=== PATIENT | female | born 1995 ===

== ENCOUNTER 2020-09-01 20:11 | Inpatient (IN) | payer OTHER ==
[~2020-09-01] VITALS: Ht 162.6 cm; Wt 55.7 kg
--- NOTE | 2020-09-01 23:31 | NUR ---
PT VS RECHECKED
--- NOTE | 2020-09-02 00:08 | NUR ---
PT WALKED BACK TO ROOM AT THIS TIME.
[2020-09-02] MEDS ORDERED: AMPICILLIN/SULBACTAM 3 GM in SODIUM CHLORIDE 0.9% 100 ML IV ONE (00:30)
[2020-09-02] MEDS ORDERED: VANCOMYCIN PER PHARMACY MC ONE (00:30)
[2020-09-02] MEDS ORDERED: SODIUM CHLORIDE FLUSH 10ML SYR IVF ONE (00:30)
[2020-09-02] MEDS ORDERED: SODIUM CHLORIDE 0.9% 1,000ML IVBOLUS ONE ×2 (00:30→02:30)
[2020-09-02 00:50] LABS: BASOPHILS % (AUTO) 1 % (0-1); EOSINOPHILS % (AUTO) 2 % (1-7); LYMPHOCYTES % (AUTO) 16 % (22-44); MEAN CORPUSCULAR HEMOGLOBIN 29.8 pg (27.0-34.8); MEAN CORPUSCULAR HGB CONC 33.2 g/dL (32.4-35.8); MEAN PLATELET VOLUME 7.4 fL (7.4-10.4); MONOCYTES % (AUTO) 8 % (2-9); NEUTROPHILS % (AUTO) 74 % (42-75); PLATELET COUNT 403 x10^3/uL (130-400); RED BLOOD COUNT 4.02 x10^6/uL (3.82-5.3)
[2020-09-02 01:01] LABS: ALANINE AMINOTRANSFERASE 22 U/L (12-78); ALBUMIN 2.9 g/dL (3.4-5.0); ANION GAP 10 mmol/L (5-15); CALCIUM 8.7 mg/dL (8.5-10.1); CHLORIDE 100 mmol/L (98-107); CREATININE 0.65 mg/dL (0.55-1.02)
[2020-09-02 01:03] LABS: ALKALINE PHOSPHATASE 177 U/L (45-117); BILIRUBIN,TOTAL 0.4 mg/dL (0.2-1.0); TOTAL PROTEIN 7.5 g/dL (6.4-8.2)
[2020-09-02 01:17] LABS: ACETONE, SERUM Moderate(40mg/dL) (Negative)
[2020-09-02] MEDS ORDERED: VANCOMYCIN 1,500 MG in SODIUM CHLORIDE 0.9% 250 ML IV ONE (01:30)
--- NOTE | 2020-09-02 01:47 | NUR ---
ABX STARTED AT THIS TIME, CULTURES DRAWN X2 PRIOR TO START
[2020-09-02 01:53] LABS: MICROSCOPIC NOT IND
[2020-09-02] MEDS ORDERED: OXYcodone IR 5MG TABLET PO PRN (03:00)
[2020-09-02] MEDS ORDERED: ZOLPIDEM 5MG TABLET PO PRN (03:00)
[2020-09-02] MEDS ORDERED: BACLOFEN 10 MG TABLET PO PRN (03:00)
[2020-09-02] MEDS ORDERED: ACETAMINOPHEN 325 MG TABLET PO PRN (03:00)
[2020-09-02] MEDS ORDERED: VANCOMYCIN PER PHARMACY MC PRN (03:00)
[2020-09-02] MEDS: INSULIN REGULAR 100 UNITS/ML, 3ML VIAL SQ-INSULIN SCH ×5 (03:00→20:59)
[2020-09-02] MEDS ORDERED: DOCUSATE 100 MG CAPSULE PO PRN (03:00)
[2020-09-02] MEDS ORDERED: ENALAPRILAT 1.25 MG/ML, 2ML IVPush PRN (03:00)
[2020-09-02] MEDS ORDERED: GUAIFENESIN/DM 200-20MG, 10ML UDC PO PRN (03:00)
--- NOTE | 2020-09-02 03:21 | NUR ---
PT RESTING ON AUDREY NADFlorecita, REQUESTING SNACKS AND BLANKET, BOTH PROVIDED
--- NOTE | 2020-09-02 03:40 | NUR ---
REPORT TO RAMIRO, ALL QUESTIONS ADDRESSED PT BELONGINGS TO BE GONE THROUGH BY SECURITY PRIOR TO TRANSFER TO FLOOR.
[2020-09-02 04:11] VITALS: BP 100/63
[2020-09-02] MEDS ORDERED: PHARMACOKINETIC MONITORING MC PRN (04:30)
[2020-09-02] MEDS: LACTATED RINGERS 1,000 ML IV SCH ×2 (04:57→22:30)
[2020-09-02] MEDS: PIPERACILLIN/TAZO 3.375 GM in DEXTROSE 5% 50 ML IVPB SCH ×3 (04:57→20:34)
[2020-09-02 06:42] VITALS: BP 104/62
[2020-09-02] MEDS ORDERED: INSULIN GLARGINE 100 UNITS/ML, PEN SQ-INSULIN SCH ×2 (08:00→08:30)
[2020-09-02] MEDS ORDERED: FAMOTIDINE 20 MG/2 ML IVPush SCH (09:00)
[2020-09-02] MEDS: FAMOTIDINE 20 MG TABLET PO SCH ×2 (09:04→20:34)
[2020-09-02] MEDS ORDERED: VANCOMYCIN 1,200 MG in SODIUM CHLORIDE 0.9% 250 ML IV SCH (14:00)
[2020-09-02 14:30] VITALS: BP 109/71
[2020-09-02] MEDS: MUPIROCIN OINT 2%, 22GM TP SCH ×2 (14:48→20:34)
[2020-09-02] MEDS ORDERED: QUET50TA5 PO (16:39)
[2020-09-02] MEDS ORDERED: INSU100V8 SQ (16:39)
[2020-09-02] MEDS ORDERED: GABA600T7 PO (16:39)
[2020-09-02] MEDS ORDERED: SERT50TA PO (16:39)
[2020-09-02] MEDS ORDERED: INSU500V SQ (16:39)
[2020-09-02 21:42] VITALS: BP 106/72
[2020-09-02] MEDS: VANCOMYCIN 1,000 MG in SODIUM CHLORIDE 0.9% 100 ML IV SCH (22:30)
[2020-09-03 02:23] VITALS: BP 128/85
[2020-09-03] MEDS: PIPERACILLIN/TAZO 3.375 GM in DEXTROSE 5% 50 ML IVPB SCH ×3 (04:07→20:29)
[2020-09-03 05:30] LABS: BASOPHILS % (AUTO) 1 % (0-1); EOSINOPHILS % (AUTO) 0 % (1-7); LYMPHOCYTES % (AUTO) 8 % (22-44); MEAN CORPUSCULAR HEMOGLOBIN 29.9 pg (27.0-34.8); MEAN CORPUSCULAR HGB CONC 32.9 g/dL (32.4-35.8); MEAN PLATELET VOLUME 7.6 fL (7.4-10.4); MONOCYTES % (AUTO) 5 % (2-9); NEUTROPHILS % (AUTO) 87 % (42-75); PLATELET COUNT 491 x10^3/uL (130-400); RED BLOOD COUNT 4.53 x10^6/uL (3.82-5.3); RED CELL DISTRIBUTION WIDTH 17.3 % (9.6-15.2)
[2020-09-03] MEDS: VANCOMYCIN 1,000 MG in SODIUM CHLORIDE 0.9% 100 ML IV SCH ×3 (05:40→22:34)
[2020-09-03 05:44] LABS: ANION GAP 13 mmol/L (5-15); CALCIUM 8.8 mg/dL (8.5-10.1); CHLORIDE 100 mmol/L (98-107)
[2020-09-03 05:55] LABS: CREATININE 0.61 mg/dL (0.55-1.02)
[2020-09-03 07:12] VITALS: BP 116/74
[2020-09-03] MEDS: INSULIN GLARGINE 100 UNITS/ML, PEN SQ-INSULIN SCH (08:31)
[2020-09-03] MEDS: INSULIN REGULAR 100 UNITS/ML, 3ML VIAL SQ-INSULIN SCH ×4 (08:32→21:04)
[2020-09-03] MEDS: FAMOTIDINE 20 MG TABLET PO SCH ×2 (09:33→20:29)
[2020-09-03] MEDS: MUPIROCIN OINT 2%, 22GM TP SCH ×3 (09:33→21:04)
[2020-09-03 12:24] VITALS: BP 100/63
[2020-09-03] MEDS: ENOXAPARIN 40 MG/0.4 ML SQ SCH (18:14)
[2020-09-03 20:17] VITALS: BP 108/65
[2020-09-04 01:10] VITALS: BP 108/65
[2020-09-04] MEDS: PIPERACILLIN/TAZO 3.375 GM in DEXTROSE 5% 50 ML IVPB SCH (04:18)
[2020-09-04 05:34] LABS: BASOPHILS % (AUTO) 1 % (0-1); EOSINOPHILS % (AUTO) 1 % (1-7); LYMPHOCYTES % (AUTO) 13 % (22-44); MEAN CORPUSCULAR HEMOGLOBIN 30.1 pg (27.0-34.8); MEAN CORPUSCULAR HGB CONC 33.6 g/dL (32.4-35.8); MEAN PLATELET VOLUME 7.2 fL (7.4-10.4); MONOCYTES % (AUTO) 11 % (2-9); NEUTROPHILS % (AUTO) 75 % (42-75); PLATELET COUNT 477 x10^3/uL (130-400); RED CELL DISTRIBUTION WIDTH 17.1 % (9.6-15.2)
[2020-09-04 05:44] LABS: ANION GAP 8 mmol/L (5-15); CALCIUM 7.8 mg/dL (8.5-10.1); CHLORIDE 109 mmol/L (98-107)
[2020-09-04 05:49] LABS: CREATININE 1.51 mg/dL (0.55-1.02)
[2020-09-04] MEDS: VANCOMYCIN 1,000 MG in SODIUM CHLORIDE 0.9% 100 ML IV SCH (06:04)
[2020-09-04 07:16] VITALS: BP 105/72
[2020-09-04] MEDS: FAMOTIDINE 20 MG TABLET PO SCH ×2 (08:40→20:29)
[2020-09-04] MEDS: SODIUM CHLORIDE 0.9% 1,000 ML IV SCH ×2 (08:42→20:46)
[2020-09-04] MEDS: INSULIN REGULAR 100 UNITS/ML, 3ML VIAL SQ-INSULIN SCH ×4 (08:54→20:38)
[2020-09-04] MEDS: ONDANSETRON 2MG/ML, 2ML IVPush PRN ×2 (08:54→15:50)
[2020-09-04] MEDS: ERTAPENEM 1 GM in SODIUM CHLORIDE 0.9% 50 ML IV SCH (10:50)
[2020-09-04] MEDS: MUPIROCIN OINT 2%, 22GM TP SCH ×2 (10:50→20:30)
[2020-09-04] MEDS: INSULIN GLARGINE 100 UNITS/ML, PEN SQ-INSULIN SCH (10:50)
[2020-09-04] MEDS: NYSTATIN 500,000 UNITS/5 ML UDC PO SCH ×3 (12:05→20:29)
[2020-09-04] MEDS: LINEZOLID PMX 600MG/300ML 300 ML IV SCH ×2 (12:05→22:29)
[2020-09-04 12:28] VITALS: BP 114/74
[2020-09-04] MEDS: ENOXAPARIN 40 MG/0.4 ML SQ SCH (16:33)
[2020-09-04 17:21] LABS: CLOSTRIDIUM DIFFICILE ANTIGEN NEGATIVE; CLOSTRIDIUM DIFFICILE TOXIN NEGATIVE (Negative)
[2020-09-04 19:53] VITALS: BP 114/80
[2020-09-05] MEDS: METOCLOPRAMIDE 5 MG/ML, 2ML IVPush SCH ×4 (00:11→22:47)
[2020-09-05 00:55] VITALS: BP 99/65
[2020-09-05] MEDS: NYSTATIN 500,000 UNITS/5 ML UDC PO SCH ×4 (05:22→21:00)
[2020-09-05 05:53] LABS: BASOPHILS % (AUTO) 1 % (0-1); EOSINOPHILS % (AUTO) 1 % (1-7); LYMPHOCYTES % (AUTO) 22 % (22-44); MEAN CORPUSCULAR HEMOGLOBIN 29.9 pg (27.0-34.8); MEAN CORPUSCULAR HGB CONC 33.4 g/dL (32.4-35.8); MEAN PLATELET VOLUME 7.3 fL (7.4-10.4); MONOCYTES % (AUTO) 11 % (2-9); NEUTROPHILS % (AUTO) 65 % (42-75); PLATELET COUNT 398 x10^3/uL (130-400); RED BLOOD COUNT 3.72 x10^6/uL (3.82-5.3)
[2020-09-05 06:03] LABS: ANION GAP 10 mmol/L (5-15); CALCIUM 7.1 mg/dL (8.5-10.1); CHLORIDE 111 mmol/L (98-107); CREATININE 3.06 mg/dL (0.55-1.02)
[2020-09-05] MEDS: SODIUM CHLORIDE 0.9% 1,000 ML IV SCH (07:00)
[2020-09-05] MEDS: INSULIN REGULAR 100 UNITS/ML, 3ML VIAL SQ-INSULIN SCH ×4 (07:00→21:38)
[2020-09-05 07:28] VITALS: BP 115/79
[2020-09-05] MEDS: INSULIN GLARGINE 100 UNITS/ML, PEN SQ-INSULIN SCH (08:35)
[2020-09-05] MEDS: MUPIROCIN OINT 2%, 22GM TP SCH ×2 (08:36→21:26)
[2020-09-05] MEDS: FAMOTIDINE 20 MG TABLET PO SCH ×2 (08:36→21:25)
[2020-09-05] MEDS: LACTATED RINGERS 1,000 ML IV SCH ×2 (08:42→15:50)
[2020-09-05] MEDS: ERTAPENEM 1 GM in SODIUM CHLORIDE 0.9% 50 ML IV SCH (11:08)
[2020-09-05] MEDS: LINEZOLID PMX 600MG/300ML 300 ML IV SCH ×2 (11:50→22:47)
[2020-09-05 12:55] VITALS: BP 106/72
[2020-09-05] MEDS ORDERED: ENOXAPARIN 30 MG/0.3 ML SQ SCH (13:30)
[2020-09-05 20:43] VITALS: BP 127/86
[2020-09-06 01:04] VITALS: BP 107/69
[2020-09-06] MEDS: LACTATED RINGERS 1,000 ML IV SCH ×3 (02:52→22:11)
[2020-09-06 05:14] LABS: BASOPHILS % (AUTO) 1 % (0-1); EOSINOPHILS % (AUTO) 1 % (1-7); LYMPHOCYTES % (AUTO) 25 % (22-44); MEAN CORPUSCULAR HEMOGLOBIN 29.5 pg (27.0-34.8); MEAN CORPUSCULAR HGB CONC 33.6 g/dL (32.4-35.8); MEAN PLATELET VOLUME 7.2 fL (7.4-10.4); MONOCYTES % (AUTO) 10 % (2-9); NEUTROPHILS % (AUTO) 63 % (42-75); PLATELET COUNT 448 x10^3/uL (130-400); RED BLOOD COUNT 3.75 x10^6/uL (3.82-5.3); RED CELL DISTRIBUTION WIDTH 16.9 % (9.6-15.2)
[2020-09-06 05:25] LABS: ANION GAP 7 mmol/L (5-15); CALCIUM 7.4 mg/dL (8.5-10.1); CHLORIDE 111 mmol/L (98-107)
[2020-09-06 05:27] LABS: CREATININE 3.44 mg/dL (0.55-1.02)
[2020-09-06] MEDS: NYSTATIN 500,000 UNITS/5 ML UDC PO SCH ×4 (05:37→21:00)
[2020-09-06 07:00] VITALS: BP 108/71
[2020-09-06] MEDS: INSULIN REGULAR 100 UNITS/ML, 3ML VIAL SQ-INSULIN SCH ×4 (07:00→22:05)
[2020-09-06] MEDS: METOCLOPRAMIDE 5 MG/ML, 2ML IVPush SCH (07:32)
[2020-09-06] MEDS: ENOXAPARIN 30 MG/0.3 ML SQ SCH (08:07)
[2020-09-06] MEDS: INSULIN GLARGINE 100 UNITS/ML, PEN SQ-INSULIN SCH (08:07)
[2020-09-06] MEDS: FAMOTIDINE 20 MG TABLET PO SCH (08:07)
[2020-09-06] MEDS: MUPIROCIN OINT 2%, 22GM TP SCH ×2 (08:07→22:10)
[2020-09-06] MEDS: AMPICILLIN/SULBACTAM 3 GM in SODIUM CHLORIDE 0.9% 100 ML IV SCH ×2 (10:00→22:04)
[2020-09-06] MEDS ORDERED: METOCLOPRAMIDE 5 MG/ML, 2ML IVPush PRN (10:30)
[2020-09-06] MEDS: LINEZOLID PMX 600MG/300ML 300 ML IV SCH ×2 (10:56→23:48)
[2020-09-06 13:05] VITALS: BP 112/69
[2020-09-06 20:08] VITALS: BP 122/82
[2020-09-07 02:43] VITALS: BP 123/83
[2020-09-07 04:49] LABS: ANION GAP 6 mmol/L (5-15); CALCIUM 7.5 mg/dL (8.5-10.1); CHLORIDE 112 mmol/L (98-107)
[2020-09-07 04:51] LABS: CREATININE 3.31 mg/dL (0.55-1.02)
[2020-09-07] MEDS: NYSTATIN 500,000 UNITS/5 ML UDC PO SCH ×4 (05:13→20:30)
[2020-09-07] MEDS: INSULIN REGULAR 100 UNITS/ML, 3ML VIAL SQ-INSULIN SCH ×4 (07:00→22:12)
[2020-09-07 07:12] VITALS: BP 129/82
[2020-09-07] MEDS: INSULIN GLARGINE 100 UNITS/ML, PEN SQ-INSULIN SCH (08:25)
[2020-09-07] MEDS: AMPICILLIN/SULBACTAM 3 GM in SODIUM CHLORIDE 0.9% 100 ML IV SCH ×2 (08:25→20:30)
[2020-09-07] MEDS: ENOXAPARIN 30 MG/0.3 ML SQ SCH (08:25)
[2020-09-07] MEDS: MUPIROCIN OINT 2%, 22GM TP SCH ×2 (09:00→20:30)
[2020-09-07] MEDS: LINEZOLID PMX 600MG/300ML 300 ML IV SCH ×2 (10:22→23:18)
[2020-09-07] MEDS: LACTATED RINGERS 1,000 ML IV SCH ×2 (10:23→17:40)
[2020-09-07 12:43] VITALS: BP 151/95
[2020-09-07 18:47] VITALS: BP 150/89
[2020-09-07] MEDS ORDERED: FAMOTIDINE 20 MG TABLET PO SCH (21:00)
[2020-09-08 00:58] VITALS: BP 121/81
[2020-09-08] MEDS: LACTATED RINGERS 1,000 ML IV SCH ×2 (03:29→10:31)
[2020-09-08 05:06] LABS: ANION GAP 5 mmol/L (5-15); CHLORIDE 109 mmol/L (98-107)
[2020-09-08 05:08] LABS: CREATININE 2.84 mg/dL (0.55-1.02)
[2020-09-08] MEDS: NYSTATIN 500,000 UNITS/5 ML UDC PO SCH ×2 (05:11→10:32)
[2020-09-08] MEDS: INSULIN REGULAR 100 UNITS/ML, 3ML VIAL SQ-INSULIN SCH ×2 (07:00→11:18)
[2020-09-08] MEDS ORDERED: INSULIN GLARGINE 100 UNITS/ML, PEN SQ-INSULIN SCH (08:00)
[2020-09-08] MEDS: MUPIROCIN OINT 2%, 22GM TP SCH (08:33)
[2020-09-08] MEDS: ENOXAPARIN 30 MG/0.3 ML SQ SCH (08:33)
[2020-09-08] MEDS: AMPICILLIN/SULBACTAM 3 GM in SODIUM CHLORIDE 0.9% 100 ML IV SCH (08:33)
[2020-09-08 09:08] VITALS: BP 146/97
[2020-09-08] MEDS: LINEZOLID PMX 600MG/300ML 300 ML IV SCH (10:31)
[2020-09-08] MEDS ORDERED: MUPI22OI2 TP (11:28)
[2020-09-08] MEDS ORDERED: LINE600T12 PO (11:28)
[2020-09-08] MEDS ORDERED: AMOX1TAB64 PO (11:28)
[2020-09-08] MEDS ORDERED: INSU100C5 SQ-INSULIN (11:28)
[2020-09-08] MEDS ORDERED: INSU100I13 SQ-INSULIN (11:28)
== END 2020-09-08 13:09 | disposition home or self-care (01) | DRG 602 ==
LOC: ED 09-02 02:50 → EDIP 09-02 03:00 → 4WST 09-02 04:03
PROVIDERS: ADMIT Internal Medicine; ATTEND Internal Medicine
PROC: 0T9B70Z Drainage of Bladder with Drainage Device, Via Natural or Artificial Opening (ICD-10-PCS; principal; 2020-09-02)
DX: L03.115 Cellulitis of right lower limb (principal); N17.0 Acute kidney failure with tubular necrosis; E87.1 Hypo-osmolality and hyponatremia; L03.116 Cellulitis of left lower limb; E10.65 Type 1 diabetes mellitus with hyperglycemia; E10.22 Type 1 diabetes mellitus with diabetic chronic kidney disease; N18.2 Chronic kidney disease, stage 2 (mild); Z79.4 Long term (current) use of insulin; Z88.6 Allergy status to analgesic agent; R00.0 Tachycardia, unspecified; B95.1 Streptococcus, group B, as the cause of diseases classified elsewhere; B95.62 Methicillin resistant Staphylococcus aureus infection as the cause of diseases classified elsewhere; E10.649 Type 1 diabetes mellitus with hypoglycemia without coma
CPT/HCPCS: 36415; 71045; 76770; 80048; 80053; 80202; 81003; 82010; 82800; 82947; 82962; 83036; 83605; 83735; 84100; 84145; 84443; 84703; 85025; 87040; 87070; 87077; 87147; 87186; 87205; 87324; 96360; 96361; G0378; J0295; J1335; J1815; J2020; J2405; J2543; J3370; J2765; J7030; J7050; J7120